=== PATIENT | male | born 1955 | race Caucasian/White ===

== ENCOUNTER → 2018-01-28 | Outpatient (CLI) | payer OTHER ==
[~2018-01-28] MED LIST: AMLO-101 PO; AMLO-96 PO; AMLO-99 PO; ASPI-692 PO; ASPI81TA94 PO; ATOR20TA65 PO; AZIT-1 PO; BUTA1CAP4 PO; CEPH500C24 PO; CHOL10005 PO; DULO30CA35 PO; DULO60CA56 PO; GABA-503 PO; HCTZ PO; IBUP800T37 PO; LEVO50TA86 PO; LOSA-44 PO; LOSA-54 PO; MELO-207 PO; METF-410 PO; METF-420 PO; PNEI IJ; PRED20TA6 PO; VASOTEC PO; [UNRECOGNIZED DRUG - REMARK] PO; vit b12
--- NOTE | 2018-01-29 12:34 | RADIOLOGY IMAGING REPORT ---
FACILITY: [facility] PATIENT NAME: ONIEL LAMBERT : [id number] MR: [id number] V: [id number] EXAM DATE: [id number] ORDERING PHYSICIAN: WARREN BEAL TECHNOLOGIST: Hugo Roa EXAMINATION:TWO-DIMENSIONAL ECHOCARDIOGRAPH REASON:Shortness of Breath 2D Measurements (normal values in centimeters) LV endLV endRV endVent.LV PostAorticLeftPercent DiastolicSystolicDiastolicSeptumWallRootAtriumShortening (3.5-5.7)(0.9-2.6)(0.6-1.1)(0.6-1.1)(2.0-3.7)(1.9-4.0)(25-35%) [id number]% STROKE VOLUME: 82mL ESTIMATED EJECTION FRACTION: 70% PARASTERNAL LONG AXIS: Overall left ventricular systolic function does appear to be normal. There is mild concentric left ventricular thickening noted. Right ventricle is mildly enlarged. Aortic valve and mitral valve both appear to open normally. Color examination of the valves revealed a trace of mitral insufficiency in this view. PARASTERNAL SHORT AXIS: Overall left ventricular function again appears to be within normal ranges. Mild concentric left ventricular thickening is noted. Aortic valve is trileaflet in configuration and appears to open normally. Color examination of the aortic and pulmonic valves is unremarkable. Color examination of the tricuspid valve reveals a traced amount of tricuspid insufficiency present. APICAL FOUR AND TWO CHAMBER: Overall left ventricular function again appears to be normal. Right ventricle appears to be enlarged. Left atrium is mildly enlarged. The left atrial volume is measured at 34ml/mt2. Right atrial volume is measured within normal range at 17.5ml/mt2. Aortic valve area and mitral valve area both calculated within normal ranges at 4.9 and 4.3cm/2 respectively. SUBCOSTAL VIEW: No pericardial effusion was noted. No atrioseptal or ventriculoseptal defects were appreciated. Doppler examination of the mitral valve in diastole does reveal the A wave > E wave. OVERALL IMPRESSION: 1. Normal left ventricular ejection fraction at70% with a mild decrease in diastolic function. 2. Mild right ventricular enlargement and mild left atrial enlargement with the other chamber sizes being normal. 3. A trace of mitral and tricuspid insufficiency with estimated right ventricular systolic pressures within normal ranges at 34mm Hg. 4. Mild concentric left ventricular thickening but no evidence for any outflow tract obstruction. Dictated by: Grzegorz Knapp M.D. on 01/28/2018 at 16:46 Transcribed by: MARIBELL on 01/29/2018 at 11:31 Approved by: Grzegorz Knapp M.D. on 01/29/2018 at 12:33 [facility]
== END ==
LOC: US 00:58
PROVIDERS: ATTEND Nurse Practitioner Primary Care
DX: I50.30 Unspecified diastolic (congestive) heart failure (principal); I51.7 Cardiomegaly; I34.0 Nonrheumatic mitral (valve) insufficiency; I07.1 Rheumatic tricuspid insufficiency
CPT/HCPCS: 93306

== ENCOUNTER → 2018-04-07 | Outpatient (CLI) | payer OTHER ==
[~2018-04-07] MED LIST changes: +GOLYTE PO; +HYDR12.561 PO; -METF-410 PO; +METF-411 PO; -METF-420 PO; +METF-421 PO
--- NOTE | 2018-04-07 16:42 | RADIOLOGY IMAGING REPORT ---
FACILITY: [facility] [place] PATIENT NAME: Roberto Carlos Arce : 1955 MR: [id number] V: [id number] EXAM DATE: ORDERING PHYSICIAN: WARREN BEAL TECHNOLOGIST: Location: [facility] Patient: Roberto Carlos Arce : 1955 Visit/Account:[id number] Date of Sevice: 04/07/2018 MRI of the left hand without contrast Indication: Left hand pain and swelling which radiates proximally into the forearm. Comparison: None available Technique: T1-weighted and proton density fat saturated, sagittal STIR and proton density fat saturat ed, axial proton-density fat-saturated, T1-weighted, images were obtained through the left hand. The patient placed an MRI compatible marker in the region of clinical concern. Findings: The MRI compatible marker is seen to overlie the dorsum of the wrist. Below the marker, there is yaneth dence of bright T2 signal which distends the radiocarpal joint space and the carpal joints. Findings would be consistent with a joint effusion and/or synovitis. The carpus is abnormal. There is abnor mal widening of the scapholunate joint. Scapholunate ligament not clearly seen and is likely torn. There is nonspecific bright T2 signal seen throughout the majority of the scaphoid. This could be re active to these suspect underlying synovitis. Subchondral bone edema involves the lunate at the join t space between the lunate and the capitate. Findings suggest osteoarthritis at the triscaphe joint and the first carpal metacarpal joint as well. Fluid is seen to at least partially distend the dista l radioulnar joint and there may be partial tearing of the triangular fibrocartilage near the radial attachment. This is seen on the edge of the tfrki-op-ipxm. At this point, differential is broad and would include inflammatory arthritides such as CPPD arthropathy or gout. Rheumatoid arthritis with secondary osteoarthritis would also be in the differential. If there is any clinical concern for inf ection, joint aspiration is necessary. In addition to the above findings, there are felt to be multiple ganglion cysts present about the wri st. A suspected multilobulated ganglion is seen along the radial margin of the wrist overlying the s caphoid and the radial styloid. There may be another ganglion cyst overlying the dorsum of the hamat e. Additional suspected ganglia are seen at the interspaces between the second, third and fourth met acarpal bases. Intrinsic musculature of the hand appears normal in signal. Contents of the carpal tunnel appear int act. There are changes of osteoarthritis seen at the second metacarpophalangeal joint. IMPRESSION: 1. MRI findings suspicious for a nonspecific synovitis at the left wrist with questionable erosive c hanges involving the lunate and with abnormal marrow edema seen throughout the scaphoid. At this poi nt, inflammatory arthritides such as CPPD arthropathy, gout or rheumatoid must be considered. Septic arthropathy would also be in the differential. If there is any clinical concern for infection, join t aspiration is necessary. 2. Widening of the scapholunate joint with suspected scapholunate ligament tear. 3. T2 signal within the distal radioulnar joint with suspected tearing of the triangular fibrocartil age. 4. Multifocal lobulated areas of bright T2 signal most consistent with multifocal ganglion cysts. S ee full discussion above. Report Dictated By: Nj Siddiqi at 04/07/2018 4:24 PM Report E-Signed By: Nj Siddiqi at 04/07/2018 4:39 PM WSN:[email or web address]
== END ==
LOC: MRI 00:56
PROVIDERS: ATTEND Nurse Practitioner Primary Care
DX: M65.842 Other synovitis and tenosynovitis, left hand (principal); M67.442 Ganglion, left hand; M71.342 Other bursal cyst, left hand
CPT/HCPCS: 73221

== ENCOUNTER 2018-05-05 01:17 | Day surgery (SDC) | payer OTHER ==
[2018-05-05] VITALS (7 sets, daily range): BP systolic 110–148; BP diastolic 68–90
[~2018-05-05] VITALS: Ht 180.3 cm; Wt 113.9 kg
[2018-05-05] MEDS ORDERED: LIDOCAINE MPF 1% 5 ML VIAL ONE (06:57)
[2018-05-05] MEDS ORDERED: PROPOFOL EMUL(*) 10MG/ML 20 ML 60 ML ONE (06:57)
[2018-05-05] MEDS ORDERED: LIDOCAINE/SOD BICARB 8.4% SYR ID ONE (12:00)
[2018-05-05] MEDS ORDERED: NORMOSOL R SOLN(*) 1000 ML BAG 1,000 ML IV PRN (12:00)
--- NOTE | 2018-05-05 13:58 | Short(Outpt) Discharge Summary ---
Discharge Summary Reason for Hosp/Final Diag: (1) Colon cancer screening Status: Chronic Hospital Course & Plan: Colonoscopy with polypectomy x1 Departure Discharge to: Home, Self Care Discharge Instructions Home Meds Active Scripts Peg/Electrolytes (GOLYTELY SOLUTION) 4,000 Ml Soln, 1 GAL PO ONCE, #1 GAL 0 Refills Prov:CHANTEL MARINA MD 03/29/18 Hydrochlorothiazide (HYDROCHLOROTHIAZIDE) 12.5 Mg Tablet, 1 TAB PO QDAY for 90 Days, #90 TAB 0 Refills Prov:WARREN BEAL DNP, [facility] 03/24/18 Levothyroxine Sodium (LEVOTHYROXINE SODIUM) 50 Mcg Tablet, 50 MCG PO QDAY, #90 TAB 3 Refills Prov:WARREN BEAL DNP, [facility] 01/25/18 Amlodipine Besylate (AMLODIPINE BESYLATE) 10 Mg Tablet, 1 TAB PO QDAY for 90 Days, #90 TAB 1 Refill Prov:WARREN BEAL DNP, [facility] 12/22/17 Atorvastatin Calcium (ATORVASTATIN CALCIUM) 20 Mg Tablet, 1 TAB PO QDAY, #90 TAB 3 Refills Prov:WARREN BEAL DNP, [facility] 12/22/17 Metformin Hcl (METFORMIN HCL) 1,000 Mg Tablet, 1 TAB PO BID, #180 TAB 3 Refills Prov:DANDRE STEEN MD 11/24/17 Gabapentin (GABAPENTIN) 600 Mg Tablet, 600 MG PO DIRECTED for 270 Days, #270 CAP 3 Refills Prov:BUBBA LAEJO MD 06/25/17 Duloxetine Hcl (CYMBALTA) 60 Mg Capsule.dr, 60 MG PO QDAY, #90 CAP 1 Refill Prov:BUBBA ALEJO MD 06/25/17 Reported Medications [vit b12] No Conflict Check 10/23/17 Losartan/Hydrochlorothiazide (HYZAAR 100-25 TABLET) 1 Each Tablet, 1 EACH PO QDAY 06/12/17 Aspirin (ASPIRIN) 81 Mg Tab.chew, 81 MG PO QDAY, TAB.CHEW 04/14/17 Diet: Regular Activity: As Tolerated Special Instructions: Your colonoscopy was completed without problems and your prep was excellent (Good Job!!). I removed a small polyp from your colon and it was sent to pathology. My office will call you in the next week or two and let you know what the polyp is and when your next colonoscopy should be, either 5 or 10 years. CHANTEL MARINA MD May 05, 2018 13:58
[2018-05-06] MEDS ORDERED: LOSA-44 PO (10:27)
== END 2018-05-05 15:20 | disposition home or self-care (01) ==
LOC: OR 01:17
PROVIDERS: ATTEND Surgery
DX: Z12.11 Encounter for screening for malignant neoplasm of colon (principal); D12.3 Benign neoplasm of transverse colon; E11.9 Type 2 diabetes mellitus without complications
CPT/HCPCS: 00811; 36416; 45385; 82948; 88305; J2001; J2704

== ENCOUNTER → 2018-08-02 | Outpatient (CLI) | payer OTHER ==
[~2018-08-02] MED LIST changes: +ALBU8.5H IH; +AMLO-111 PO; +AMLO-113 PO; -AMLO-96 PO; -AMLO-99 PO; +FURO-47 PO; +LOSA100T69 PO; -METF-411 PO; -METF-421 PO; +METF-450 PO; +METF-452 PO; +METH4TAB66 PO; +MODA200T55 PO
--- NOTE | 2018-08-02 11:03 | RADIOLOGY IMAGING REPORT ---
FACILITY: [facility] PATIENT NAME: Roberto Carlos Arce : 1955 MR: [id number] V: [id number] EXAM DATE: ORDERING PHYSICIAN: WARREN BEAL TECHNOLOGIST: Location: [facility] [place] Patient: Roberto Carlos Arce : 1955 Visit/Account:[id number] Date of Sevice: 08/02/2018 Chest 2 views: HISTORY: Surgery Thursday. Cough x5 days. No chest pain. Nonsmoker. Shortness of breath and wheezin g. COMPARISON: 04/14/2017 FINDINGS: Frontal and lateral chest: Cardiomediastinal silhouette is within normal limits. There is no infiltrate or pleural effusion. No pneumothorax. Pulmonary vasculature is normal. Degenerative changes are present in the thoracic spine. Postsurgical changes present in the cervical spine. IMPRESSION: No evidence of acute cardiopulmonary abnormality. Report Dictated By: Bettie Benson MD at 08/02/2018 10:56 AM Report E-Signed By: Bettie Benson MD at 08/02/2018 10:59 AM WSN:[email or web address]
== END ==
LOC: RAD 09:35
PROVIDERS: ATTEND Nurse Practitioner Primary Care
DX: R05 Cough (principal)
CPT/HCPCS: 71046

== ENCOUNTER → 2018-10-26 | Outpatient (CLI) | payer OTHER ==
[~2018-10-26] MED LIST changes: -LOSA100T69 PO; +LOSA100T75 PO
--- NOTE | 2018-10-26 10:51 | RADIOLOGY IMAGING REPORT ---
FACILITY: [facility] - [place] PATIENT NAME: Roberto Carlos Arce : 1955 MR: [id number] V: [id number] EXAM DATE: ORDERING PHYSICIAN: BUBBA ALEJO TECHNOLOGIST: Location: [facility] [place] Patient: Roberto Carlos Arce : 1955 Visit/Account:[id number] Date of Sevice: 10/26/2018 CAROTID HISTORY: Asymptomatic bilateral carotid artery stenosis COMPARISON: September 23, 2017 FINDINGS: Grayscale, duplex and color Doppler interrogation of the extracranial carotid and vertebral arteries was performed bilateral. On the right, peak systolic velocities within the common and internal carotid arteries are 141 and 73 cm/sec respectively. A small amount of hard plaque is identified in the right carotid bulb and prox imal right internal carotid artery. A moderate amount of hard plaque is identified in the proximal r ight external carotid artery. Antegrade flow within the common, internal and external carotid arteri es as well as vertebral artery. ICA/CCA ratio 0.7. On the left, peak systolic velocities within the common and internal carotid arteries are 87 and 100 cm/sec respectively. There is a small amount of soft plaque in the distal left common carotid artery and in the proximal to mid left internal carotid artery.. Antegrade flow within the common, interna l and external carotid arteries as well as vertebral artery. ICA/CCA ratio 1.2. IMPRESSION: There is a small amount of plaque at the carotid bulbs and proximal internal carotid arteries and a m oderate amount of plaque in the right external carotid artery although no hemodynamically significant lesions identified by velocity criteria Velocity criteria are extrapolated from diameter data as defined by the Society of Radiologists in Ul trasound Consensus Conference Radiology 2003; 229;340-346 Report Dictated By: Marley Alaniz MD at 10/26/2018 10:44 AM Report E-Signed By: Marley Alaniz MD at 10/26/2018 10:48 AM WSN:[email or web address]
== END ==
LOC: US 00:18
PROVIDERS: ATTEND Internal Medicine
DX: I65.23 Occlusion and stenosis of bilateral carotid arteries (principal)
CPT/HCPCS: 93880

== ENCOUNTER → 2018-12-01 | Outpatient (CLI) | payer OTHER ==
[~2018-12-01] MED LIST changes: -AMLO-111 PO; -AMLO-113 PO; +AMLO-125 PO; +AMLO-127 PO; -GABA-503 PO; +GABA-533 PO
--- NOTE | 2018-12-01 16:35 | RADIOLOGY IMAGING REPORT ---
FACILITY: [facility] [place] PATIENT NAME: Roberto Carlos Arce : 1955 MR: [id number] V: [id number] EXAM DATE: ORDERING PHYSICIAN: [facility] TECHNOLOGIST: Location: [facility] [place] Patient: Roberto Carlos Arce : 1955 Visit/Account:[id number] Date of Sevice: 12/01/2018 Exam type: US SOFT TISSUE NON-SPECIFIC History: Lump on left mandible Comparison: None. Findings: Multiple sonographic images were taken adjacent to the left mandible in the area of interest demonstr ating a 8.4 x 4.2 x 4.4 mm hypoechoic collection with some acoustic enhancement. This may represent a small fluid collection. Also noted in this location was a 1.7 x 0.9 x 0.8 cm lymph node with a fat ty hilum. IMPRESSION: 1. There is a small 8 mm hypoechoic collection which may represent fluid immediately adjacent to the patient's palpable findings adjacent to the left mandible. 1.7 cm fatty replaced lymph node also noted in this location Report Dictated By: Marley Alaniz MD at 12/01/2018 4:25 PM Report E-Signed By: Marley Alaniz MD at 12/01/2018 4:27 PM WSN:[email or web address]
== END ==
LOC: US 00:18
DX: H74.8X3 Other specified disorders of middle ear and mastoid, bilateral (principal)
CPT/HCPCS: 76999

== ENCOUNTER → 2019-01-25 | Outpatient (CLI) | payer OTHER ==
[~2019-01-25] MED LIST changes: +IOPAMIDOL 76% 100 ML INFUS BTL 100 ML ONE; +MELO-205 PO
--- NOTE | 2019-01-25 11:45 | RADIOLOGY IMAGING REPORT ---
FACILITY: [facility] - [place] PATIENT NAME: Roberto Carlos Arce : 1955 MR: [id number] V: [id number] EXAM DATE: ORDERING PHYSICIAN: ARBEN PEDERSON TECHNOLOGIST: Location: [facility] Patient: Roberto Carlos Arce : 1955 Visit/Account:[id number] Date of Sevice: 01/25/2019 EXAMINATION: CT neck with IV contrast HISTORY: Personal history or other malignant neoplasm of skin. Localized swelling, mass and lump of left neck. COMPARISON: Neck ultrasound from 12/01/2018. TECHNIQUE: Spiral scan was obtained from the hard palate through the upper chest during injection o f nonionic iodinated intravenous contrast. Sagittal and coronal reformatted images are also submitte d. CONTRAST: 75 mL of IV Isovue-370. One of the following dose optimization techniques was utilized in the performance of this exam: Autom ated exposure control; adjustment of the mA and/or kV according to the patient's size; or use of an i terative reconstruction technique. Specific details can be referenced in the facility's radiology C T exam operational policy. FINDINGS: Masses/lesions: There are extensive postoperative changes in the left neck, with previous parotidect keith, submandibular gland resection, sternocleidomastoid muscle and internal jugular vein resection. There are a few soft tissue nodules in the left parotidectomy bed, the largest measuring 10 mm (image 32 series 2). There is fatty atrophy versus resection of the left anterior belly the digastric. There is fatty atrophy of the left trapezius muscle. Airway: Normal. Vessels: Mild atherosclerotic calcifications of the aortic arch and moderate atherosclerotic calcifi cations of the carotid bulb. Vascular structures are patent. Musculoskeletal/body wall: There are disc arthroplasties at C5-6 and C6-7 which are well-positioned. No focal lytic or sclerotic bony lesions. The mandible is intact. Lymph nodes: Negative. Visualized orbits/brain/paranasal sinuses: Visualized intracranial contents are normal. The left kathleen be is smaller than the right with previous lens surgery and high density prosthesis in the region of the lens/anterior chamber. Upper chest: Negative. IMPRESSION: 1. Previous left parotidectomy and neck dissection, with a few soft tissue nodules in the left parot idectomy bed, the largest measuring 10 mm. These nodules could be postoperative scarring, small lymp h nodes, or recurrent disease. Comparison to prior CT or MRI of the neck would be helpful. Otherwis e this exam can serve as a baseline for follow-up. 2. Fatty atrophy of the left trapezius muscle. Report Dictated By: Brigette Barajas MD at 01/25/2019 10:43 AM Report E-Signed By: Brigette Barajas MD at 01/25/2019 11:40 AM WSN:[id number]
== END ==
LOC: CT 01:07
PROVIDERS: ATTEND Otolaryngology
DX: I70.0 Atherosclerosis of aorta (principal); Z98.890 Other specified postprocedural states
CPT/HCPCS: 70491; Q9967

== ENCOUNTER → 2019-02-11 | Outpatient (CLI) | payer OTHER ==
[~2019-02-11] MED LIST changes: -IOPAMIDOL 76% 100 ML INFUS BTL 100 ML ONE
--- NOTE | 2019-02-11 11:42 | RADIOLOGY IMAGING REPORT ---
FACILITY: [facility] [place] PATIENT NAME: Roberto Carlos Arce : 1955 MR: [id number] V: [id number] EXAM DATE: ORDERING PHYSICIAN: ARBEN PEDERSON TECHNOLOGIST: Location: [facility] [place] Patient: Roberto Carlos Arce : 1955 Visit/Account:[id number] Date of Sevice: 02/11/2019 EXAMINATION: Ultrasound of the neck 02/11/2019 9:30 AM HISTORY: Palpable finding in the neck with patient scheduled for potential biopsy. History of previ ous prostatectomy and neck dissection. COMPARISON: CT 01/25/2019, ultrasound 12/01/2018 FINDINGS: The area of concern was reassessed sonographically. There is a benign-appearing lymph nod e which measures 1.2 x 1.3 x 0.7 cm which correlates with the 1 cm nodule on the CT and was demonstra harshad sonographically in November as well measuring 1.7 x 0.9 x 0.8 cm at that time. A second smaller n onspecific hypoechoic area is demonstrated in this area with largest measurement today of 7 mm, 8mm i n November. I am uncertain if this is a small fluid collection of this could be a smaller lymph node, with a lack of any interval growth would certainly argue against any concerning process. I discussed exam findings with patient at completion of scanning. Given the completely benign appear ance of the largest lymph node which was the initial area of palpable concern, and the fact that I be lieve this correlates with the soft tissue nodule noted by the CT, I do not think that ultrasound-james ded needle assessment is indicated based on imaging features. After some discussion with the patient he was comfortable with imaging surveillance. IMPRESSION: The largest finding in the area of concern in the left side of the neck near the angle of the mandible is a benign-appearing lymph node which if anything is decreased in size comparing with November, and clinical and imaging surveillance is recommended and percutaneous biopsy was deferred at this time. Report Dictated By: Roberto Carlos Price MD at 02/11/2019 10:48 AM Report E-Signed By: Roberto Carlos Price MD at 02/11/2019 11:37 AM WSN:[email or web address]
== END ==
LOC: US 01:17
PROVIDERS: ATTEND Otolaryngology
DX: R22.1 Localized swelling, mass and lump, neck (principal); Z85.828 Personal history of other malignant neoplasm of skin
CPT/HCPCS: 76999

== ENCOUNTER → 2019-06-14 | Outpatient (CLI) | payer OTHER ==
[~2019-06-14] MED LIST changes: +POTA20TA85 PO; +SPIR25TA80 PO
[2019-06-14 11:44] LABS: PLATELET COUNT, AUTOMATED 241 K/uL (150-450)
== END ==
LOC: LAB 11:29
PROVIDERS: ATTEND Nurse Practitioner Primary Care
DX: R23.3 Spontaneous ecchymoses (principal)
CPT/HCPCS: 36415; 81001; 82040; 82247; 82310; 82374; 82435; 82565; 82947; 84075; 84132; 84155; 84295; 84450; 84460; 84520; 85025; 85651; 86140